=== PATIENT | male | born 1935 | race Caucasian/White ===

== ENCOUNTER → 2016-11-23 | Day surgery (SDC) | payer OTHER ==
[~2016-11-23] MED LIST: BUPIVACAINE HCL PF 0.25% 30 ML VIAL ONE; LACTATED RINGER'S 1000 ML INJ 1,000 ML ONE; MIDAZOLAM HCL 2 MG/2 ML VIAL ONE; PROPOFOL 500 MG/50 ML BTL IV ONE; ceFAZolin INJ 1,000 MG VIAL ONE
--- NOTE | 2016-11-26 09:36 | MP ---
cc: MIGUEL MARTINEZ DATE OF SURGERY: 11/23/2016 PREOPERATIVE DIAGNOSIS: Left hand recurrent carpal tunnel syndrome. POSTOPERATIVE DIAGNOSIS: Left hand recurrent carpal tunnel syndrome. SURGEON Miguel Martinez MD. HUMAN FACTORS ENGINEER: BELLA Garcia. HUMAN FACTORS ENGINEER BELLA Pro The surgical procedure was assisted by my Advanced Registered Nurse Practitioner. My STEREO MAP PLOTTER OPERATOR presence was necessary throughout this case for the manipulation and positioning of the surgical extremity. My STEREO MAP PLOTTER OPERATOR was assisting me throughout the duration of this procedure. The skill set of an Advance Registered Nurse Practitioner was medically necessary to complete this procedure. During the surgical case, the rn surgical was working at the back table and the Advance Registered Nurse Practitioner was directly assisting me. PROCEDURE: Left hand revision open carpal tunnel release. ANESTHESIA: TIVA TOURNIQUET TIME: 10 minutes at 250 mmHg pressure. PROCEDURE The patient had TIVA anesthesia administered. He had intravenous Ancef administered. The left upper extremities prepped and draped in the usual sterile fashion and there was exsanguinated. Tourniquet was raised, the volar infiltration of 0.25% Marcaine plain was given. We made incision through the previous carpal tunnel incision was quite a bit of scar tissue and the subcutaneous region. We identified that the deep transverse carpal ligament had re-grown totally over the volar aspect of the hand. We then incised to the deep transverse carpal ligament starting the central portion so we can place a [place] elevator to protect the median nerve and then we incised all the way up proximally and we did this distally. There was some scar tissue around the median nerve and neuro lysis was performed. We did excise a portion of the deep transverse carpal ligament. There was no produced the chance of recurrence of carpal tunnel. The tourniquet was released. Hemostasis was achieved and was thoroughly irrigated and skin was closed 2-0 Vicryl followed by 3-0 nylon. The patient placed into a hand bundle, brought to the Recovery Room in stable condition. Miguel Martinez MD /raymon /3:20 PM /9:30 AM
== END | disposition home or self-care (01) ==
LOC: ESDC 13:02
PROVIDERS: ATTEND Orthopaedic Surgery
DX: G56.02 Carpal tunnel syndrome, left upper limb (principal)
CPT/HCPCS: 01810; 64721; J0690; J2250; J3010; J7120